=== PATIENT | female | born 1995 | race Caucasian/White ===

== ENCOUNTER → 2017-10-29 14:30 | Outpatient (CLI) | payer BC, SELFPAY ==
[2017-10-29 15:24] LABS: Add Manual Diff / Slide Review NO; Basophils Percent Auto 0.3 % (0-2); Eosinophils Percent Auto 0.7 % (2-4); Hematocrit 44.7 % (36-46); Hemoglobin 15.6 g/dL (12.0-16.0); Lymphocytes Percent Auto 25.7 % (25-40); Mean Corpuscular Hemoglobin 30.2 PG (26-34); Mean Corpuscular Volume 86.3 fL (80-100); Monocytes Percent Auto 8.4 % (3-14); Neutrophils Absolute Auto 6600 /uL (3000-5900); Neutrophils Percent Auto 64.9 % (50-75); Platelet Count 392 X10^3/uL (150-400); Red Blood Cell Count 5.18 X10^6/uL (4.0-5.2); Red Cell Distribution Width 13.1 % (11.6-14.8); White Blood Cell Count 10.1 X10^3/uL (4.5-11.0)
[2017-10-29 18:02] LABS: Pregnancy Test Serum,Qual Negative (Negative)
== END ==
PROVIDERS: PCP Specialist; Visit Provider Specialist
DX: Z01.818 Encounter for other preprocedural examination (principal)
CPT/HCPCS: 36415; 84703; 85025

== ENCOUNTER 2017-10-30 12:10 | Day surgery (SDC) | payer BC, SELFPAY ==
[2017-10-28 08:59] VITALS: BMI 30.5
[2017-10-30] VITALS (8 sets, daily range): BP systolic 106–126; BP diastolic 58–79; PULSE 72–102; RESP 10–22; TEMP 36.3–37.5; O2SAT 97–99; BMI 30.1
[2017-10-30] MEDS: LACTATED RINGERS 1,000 ML 42 ML IV (12:44)
--- NOTE | 2017-10-30 14:38 | PM.PREOP ---
Pre-operative Note Interval Note Pre-op Check: History & Physical Reviewed by Physician and Exam Performed
--- NOTE | 2017-10-30 15:00 | SUR.OPER ---
Lithotomy on padded OR bed, head on gel donut on foam block arms secured on padded arm boards at <90 degrees abduction. Legs secured in padded yellow fins stirrups.
[2017-10-30] MEDS: BUPIVACAINE 0.5% W/ EPI (PF) 30 ML VIAL INJ (15:03)
--- NOTE | 2017-10-30 15:16 | PM.GYNOP.1 ---
Operative Date/Time/Diagnoses - Date of procedure: 10/30/17 Time of procedure: 15:16 Pre-op diagnosis: undesired fertility, IUD in uterus Post-op diagnosis: same Procedure: Procedures Operation Date: 10/30/17 13:00 Actual Procedures Side Surgeon p Laparoscopic tubal ligation and removal of iud Cat Nunes MD s Intrauterine Device Removal Cat Nunes MD Indications: Undesired fertility and desire for removal of IUD Surgeon: Cat Nunes Anesthesia Type: General Operative Notes Findings: Normal tubes, ovaries, and uterus, no internal scar tissue or endometriosis Closure Type: primary Specimen(s): none Estimated blood loss (mL): 5 Procedure in detail: Patient was brought to the operating room where she underwent general anesthesia. She was placed in low yellowfin stirrups and prepped and draped in usual sterile fashion. No antibiotics were indicated. Pulsatile stockings were in place and functional. Warming was with blankets. A speculum was placed in the vagina. The IUD strings were grasped and removed. A single-tooth tenaculum was placed on the anterior lip of the cervix and the cervix dilated to #6 Hegar dilator. The Laura uterine manipulator was placed and balloon inflated with 3 mL of air. The area of the incisions were injected with half percent Marcaine with epinephrine. An incision was made in the umbilicus with a scalpel and the Verres needle placed in the abdomen. Confirmation of correct placement of the needle was performed by withdrawing on the syringe and then allowing fluid to fall freely through the needle. The abdomen was insufflated to 4 L of CO2. A 5 mm trocar was placed under direct visualization. 2 other 5 mm trochars were placed in the right and left lower quadrant under direct visualization after incising the skin. There did not appear to be any damage with placement of the trocars. The right fallopian tube was grasped, cauterizing x3 and cut with the PK generator. Same procedure was performed on the left fallopian tube. Adequate hemostasis was noted. The CO2 was allowed to escape from the abdomen. The trochars were removed. Skin was closed with 4 O Vicryl. The patient went to recovery room in good condition. Counts of instruments and sponges were correct. Complications: none Post-operative Condition: stable Disposition: same day surgery Plan for aftercare: Home when awake and stable. Follow-up in 2 weeks.
[2017-10-30] MEDS: fentaNYL 100 MCG/2 ML INJ 50 MCG IV (15:23)
[2017-10-30] MEDS: ONDANSETRON 4 MG/2 ML INJ IV (15:28)
[2017-10-30] MEDS: OXYCODONE/ACETAMINOPHEN 5/325 TABLET 2 TAB PO (15:46)
== END 2017-10-30 16:20 ==
LOC: OR 12:12
PROVIDERS: PCP Specialist; Visit Provider Specialist
PROC: (CPT 58671; principal; 2017-10-30 13:00)
PROC: (CPT 58670; 2017-10-30 13:00)
DX: Z30.2 Encounter for sterilization (principal); Z30.432 Encounter for removal of intrauterine contraceptive device
CPT/HCPCS: 58670; 58301; J1100; J1885; J2405; J3010

== ENCOUNTER → 2017-12-12 15:01 | Outpatient (CLI) | payer BC, SELFPAY ==
--- NOTE | 2017-12-12 15:03 | DI.RAD.S_ITS ---
PROCEDURE: XR KNEE RT 3V INDICATIONS: R knee pain s/p fall TECHNIQUE: 3 views of the knee were acquired. COMPARISON: None. FINDINGS: Bones: No fractures or dislocations. No suspicious bony lesions. Mild narrowing of the medial joint space Soft tissues: Moderate joint effusion. No suspicious soft tissue calcifications. IMPRESSION: Moderate joint effusion. No fracture. Mild degenerative joint disease. Dictated by: Doyle Kc M.D. on 12/12/2017 at 15:50 Approved by: Doyle Kc M.D. on 12/12/2017 at 15:51
== END ==
PROVIDERS: Visit Provider Physician Assistant
DX: M17.11 Unilateral primary osteoarthritis, right knee (principal); M25.561 Pain in right knee; M25.461 Effusion, right knee
CPT/HCPCS: 73562

== ENCOUNTER → 2017-12-23 07:00 | Outpatient (CLI) | payer BC, SELFPAY ==
--- NOTE | 2017-12-23 07:02 | DI.MRI.S_ITS ---
PROCEDURE: MR KNEE RT WO CON INDICATIONS: [id number] injury of unstable R knee TECHNIQUE: Noncontrast sagittal PD fast spin echo and T2 fast spin echo with fat saturation, sagittal 3-D FLASH with fat saturation; coronal T1 spin echo and PD fast spin echo with fat saturation, and axial PD fast spin echo with fat saturation through the knee. COMPARISON: [facility], CR, XR KNEE RT 3V, 12/12/2017, 14:42. FINDINGS: Image quality: Excellent. Menisci: The medial and lateral menisci demonstrate normal morphology and internal signal. The meniscal root ligaments appear intact. Cruciate ligaments: Full-thickness tearing of the anterior cricket ligament is present. Posterior cruciate ligament is intact there Medial structures: The medial collateral ligament appears intact. The posterior oblique ligament, semimembranosus tendon insertions, oblique popliteal ligament, and meniscocapsular junction appear intact. Visualized portions of the pes anserinus tendons appear normal. No abnormal bursal fluid. Lateral structures: The lateral collateral ligament, long and short heads of the biceps femoris tendon appear intact. The popliteus tendon appears normal; the popliteofibular ligament appears intact. The posterosuperior and anteroinferior popliteomeniscal fascicles appear intact. The arcuate and fabellofibular ligaments appear intact, on either side of the lateral inferior geniculate artery. Iliotibial band appears normal. Anterior structures: The quadriceps and patellar tendons appear intact. Patellar alignment is normal. No femoral trochlear dysplasia or ventral trochlear prominence. Moderate edema in the infrapatellar fat pad. Bones and cartilage: There is minimal, roughly 1-2 mm of depression of the anterior weightbearing and nonweightbearing lateral femoral condyle, with minimal underlying ill-defined T2 signal elevation and linear low signal intensity. The cartilage of the medial and lateral femorotibial compartments, as well as the patellofemoral compartment, appears normal in thickness. Joint space: There is a small knee joint effusion. Trace Kirkpatrick's cyst with small amount of adjacent fluid deep to the medial head of the gastrocnemius.. Normal appearing synovial plicae are incidentally noted. IMPRESSION: 1. Anterior cruciate ligament tear. 2. Minimally depressed subacute fracture of the anterior aspect of the lateral femoral condyle. 3. Small knee joint effusion. Trace Kirkpatrick's cyst, which appears recently ruptured. 4. Infrapatellar fat pad edema, suggestive of hyperextension injury. Dictated by: Roscoe Levi M.D. on 12/23/2017 at 8:42 Approved by: Roscoe Levi M.D. on 12/23/2017 at 8:46
== END ==
PROVIDERS: PCP Specialist; Visit Provider Physician Assistant
DX: S72.421A Displaced fracture of lateral condyle of right femur, initial encounter for closed fracture (principal); S83.511A Sprain of anterior cruciate ligament of right knee, initial encounter; M25.461 Effusion, right knee; M25.561 Pain in right knee
CPT/HCPCS: 73721